=== PATIENT | male | born 1960 | race Caucasian/White ===

== ENCOUNTER 2021-03-19 04:31 | Day surgery (SDC) | payer BC ==
[2021-03-18 15:58] VITALS: BMI 35.6
[2021-03-19] MEDS ORDERED: BUPIVACAINE HCL/PF 0.5% (5MG/ML) 10 ML VIAL ONE (09:36)
[2021-03-19] MEDS ORDERED: MIDAZOLAM HCL 2 MG/2 ML SINGLE DOSE VIAL ONE (09:47)
[2021-03-19] MEDS ORDERED: PROPOFOL 20 ML ONE (09:47)
[2021-03-19] MEDS ORDERED: ceFAZolin SODIUM 1 GM VIAL IVPB ONE (10:10)
[2021-03-19] MEDS ORDERED: BUPIVACAINE HCL/PF 0.5% (5MG/ML) 10 ML VIAL IJ ONE (10:39)
[2021-03-19] MEDS ORDERED: DEXAMETHASONE SOD PHOSPHATE 4 MG/1 ML VIAL ONE (11:37)
[2021-03-19] MEDS ORDERED: ONDANSETRON 4 MG/2 ML VIAL ONE (11:37)
[2021-03-19] MEDS ORDERED: KETOROLAC TROMETHAMINE 30 MG/1 ML VIAL ONE (11:37)
[2021-03-19] MEDS ORDERED: ceFAZolin SODIUM 1 GM VIAL ONE (11:37)
[2021-03-19 11:54] VITALS: TEMP 98.1
[2021-03-19] MEDS ORDERED: ONDANSETRON 4 MG/2 ML VIAL IVPUSH PRN (12:10)
[2021-03-19] MEDS ORDERED: oxyCODONE HCL 5 MG TABLET PO PRN (12:10)
[2021-03-19] MEDS ORDERED: LACTATED RINGERS SOLUTION 1,000 ML IV SCH (12:15)
[2021-03-19] MEDS ORDERED: oxyCODONE HCL 5 MG TABLET PO ONE (12:15)
[2021-03-19] MEDS ORDERED: oxyCODONE HCL 5 MG TABLET ONE (12:19)
[2021-03-19 12:49] VITALS: BP 143/81; PULSE 61
== END 2021-03-19 13:46 | disposition home or self-care (01) ==
LOC: JASU-SURG 04:31
PROVIDERS: ATTEND Orthopaedic Surgery
PROC: 0SBC4ZZ Excision of Right Knee Joint, Percutaneous Endoscopic Approach (ICD-10-PCS; principal; 2021-03-19 09:30)
DX: S83.241A Other tear of medial meniscus, current injury, right knee, initial encounter (principal); M17.11 Unilateral primary osteoarthritis, right knee; X58.XXXA Exposure to other specified factors, initial encounter; Y93.9 Activity, unspecified; Y92.9 Unspecified place or not applicable; Y99.9 Unspecified external cause status
CPT/HCPCS: 94760

== ENCOUNTER 2022-11-30 04:33 | Day surgery (SDC) | payer BC ==
[2022-11-24 14:49] VITALS: BMI 34.4
[2022-11-30] MEDS ORDERED: MIDAZOLAM HCL 2 MG/2 ML SINGLE DOSE VIAL ONE (15:50)
[2022-11-30 16:41] VITALS: RESP 16
[2022-11-30 17:03] VITALS: BP 133/82; PULSE 63; TEMP 97.8
== END 2022-11-30 17:00 | disposition home or self-care (01) ==
LOC: JASU-SURG 04:33
PROVIDERS: ATTEND Urology
PROC: 0TF4XZZ Fragmentation in Left Kidney Pelvis, External Approach (ICD-10-PCS; principal; 2022-11-30 15:30)
DX: N20.0 Calculus of kidney (principal)